=== PATIENT | female | born 2000 | race Caucasian/White ===

== ENCOUNTER 2024-06-28 09:25 | Emergency (ER) | payer MEDICAID ==
[~2024-06-28] VITALS: Ht 160 cm; Wt 86.4 kg
[2024-06-28 09:35] VITALS: TEMP 99
[2024-06-28 10:34] VITALS: BP 104/69; PULSE 109; RESP 20; O2SAT 97
== END 2024-06-28 10:00 ==
LOC: ER 09:25
DX: Z02.89 Encounter for other administrative examinations (principal); H57.13 Ocular pain, bilateral
CPT/HCPCS: 99283